=== PATIENT | female | born 1975 | race American Indian/Alaskan Native ===

== ENCOUNTER 2021-06-24 10:55 | Day surgery (SDC) | payer BC ==
[2021-06-22 11:36] LABS: Basophils % (Auto) 0.9 % (0.0-1.8); Eosinophils # (Auto) 0.2 K/mm3 (0.0-0.4); Eosinophils % (Auto) 4.2 % (0.0-4.3); Hematocrit 41.9 % (30.3-42.9); Hemoglobin 13.5 gm/dl (10.1-14.3); Lymphocytes # (Auto) 2.2 K/mm3 (1.2-5.4); Mean Corpuscular HGB Conc 32 % (30-34); Mean Corpuscular Volume 86 fl (79-97); Monocytes # (Auto) 0.3 K/mm3 (0.0-0.8); Monocytes % (Auto) 6.1 % (0.0-7.3); Platelet Count 325 K/mm3 (140-440); Red Blood Count 4.86 M/mm3 (3.65-5.03); Red Cell Distribution Width 13.8 % (13.2-15.2)
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
[~2021-06-24 10:55] MED LIST: ACETAMINOPHEN 500 MG TAB PO NR; CELECOXIB 200 MG CAP PO NR; LACTATED RINGERS 1,000 ML IV SCH; MAGNESIUM OXIDE 400 MG TAB PO NR; MIDAZOLAM 2 MG/2 ML INJ IV NR; fentaNYL 100 MCG/2 ML INJ IV NR
[2021-06-24] MEDS ORDERED: ONDANSETRON 4 MG/2 ML INJ IV PRN ×2 (11:22→17:59)
[2021-06-24] MEDS ORDERED: HYDROmorphone 1 MG/1 ML INJ IV PRN (11:22)
--- NOTE | 2021-06-24 11:23 | Anesthesia Day of Surgery ---
Anesthesia Day of Surgery - Day of Surgery Patient Examined: Yes Patient H&P Reviewed: Yes Patient is NPO: Yes
--- NOTE | 2021-06-24 11:57 | Short Stay Summary ---
Short Stay Documentation Date of service: 06/24/21 Narrative H&P: 45y/o with a symptomatic fibroid uterus. The patient had a pelvic ultrasound that demonstrated a markedly enlarged uterus of 15cm with the largest leiomyoma being 4cm. She reports painful heavy menses. She has failed medical management and elects for definitive surgical management. - History Principal diagnosis: Uterine fibroids Past Medical History: No medical history Past Surgical History: No surgical history Social history: single - Allergies and Medications Current Medications: Allergies No Known Allergies Allergy (Unverified 06/19/21 10:48) Home Medications Medication Instructions Recorded Confirmed Last Taken Type Iron 1 tab PO DAILY 06/19/21 06/24/21 06/23/21 09:00 History Vitamin D (Nf) 1 tab PO DAILY 06/19/21 06/24/21 06/23/21 09:00 History Active Medications Acetaminophen (Acetaminophen 500 Mg Tab) 1,000 mg PO ONCE NR Stop: 06/24/21 20:00 Celecoxib (Celecoxib 200 Mg Cap) 400 mg PO PREOP NR Stop: 06/24/21 20:00 Fentanyl (Fentanyl 100 Mcg/2 Ml Inj) 100 mcg IV ONCE NR Stop: 06/24/21 20:00 Hydromorphone HCl (Hydromorphone 1 Mg/1 Ml Inj) 0.25 mg IV Q10MIN PRN PRN Reason: Pain, Moderate (4-6) Stop: 06/24/21 20:00 Hydromorphone HCl (Hydromorphone 1 Mg/1 Ml Inj) 0.5 mg IV Q10MIN PRN PRN Reason: Pain , Severe (7-10) Stop: 06/24/21 20:00 Lactated Ringer's (Lactated Ringers) 1,000 mls @ 125 mls/hr IV DIRECT ERNESTO Stop: 06/24/21 20:00 Magnesium Oxide (Magnesium Oxide 400 Mg Tab) 400 mg PO ONCE NR Stop: 06/24/21 20:00 Methocarbamol (Methocarbamol 750 Mg Tab) 1,500 mg PO ONCE NR Stop: 06/24/21 20:00 Last Admin: 06/24/21 11:30 Dose: 1,500 mg Midazolam HCl (Midazolam 2 Mg/2 Ml Inj) 2 mg IV PREOP NR Stop: 06/24/21 23:59 Ondansetron HCl (Ondansetron 4 Mg/2 Ml Inj) 4 mg IV ONCE PRN PRN Reason: Nausea And Vomiting Stop: 06/24/21 13:00 - Physical exam General appearance: no acute distress Integumentary: no rash HEENT: Atraumatic Lungs: Clear to auscultation Breasts: deferred Heart: Regular rate Gastrointestinal: normal Female Genitourinary: deferred Rectal Exam: deferred Extremities: no ischemia Neurological: Normal gait - Brief post op/procedure progress note Date of procedure: 06/24/21 Pre-op diagnosis: Symptomatic uterine fibroids Post-op diagnosis: same Procedure: Robotic hysterectomy and bilateral salpingectomy Anesthesia: GETA Surgeon: GT CALI Estimated blood loss: other (100 mL) Pathology: list (Uterus, cervix, bilateral tubes, leiomyomas) Specimen disposition: to lab Condition: stable - Hospital course Hospital course: The patient was admitted the day of surgery underwent a robotic hysterectomy and bilateral salpingectomy. Please see operative note for details of surgery. Her postoperative course was uneventful. - Disposition Condition at discharge: Good Disposition: 01 HOME / SELF CARE / HOMELESS Short Stay Discharge Plan Activity: other (Pelvic rest for 6 weeks) Diet: regular Additional Instructions: Schedule follow-up with Dr. Cali in [address] in 2 weeks No tub baths for 4 weeks
[2021-06-24] MEDS ORDERED: ceFAZolin/Water 2 GM/20 ML 2 GM/20 ML SYRINGE IV NR (12:00)
[2021-06-24] MEDS ORDERED: BUPIVACAINE/PF (0.25%) 2.5 MG/ML 30 ML VIAL INFILTRATI ONE (12:30)
[2021-06-24] MEDS ORDERED: dexAMETHasone 20 MG/5 ML VIAL ONE (12:31)
[2021-06-24] MEDS ORDERED: MIDAZOLAM 2 MG/2 ML INJ IV NR (13:00)
[2021-06-24] MEDS ORDERED: NEOMY 40 MG/POLYMYXIN B 200,000 UNITS/ML (GU) AMPULE IR ONE ×2 (13:06→13:50)
[2021-06-24] MEDS ORDERED: propofoL 200 MG/20 ML VIAL IV ONE (13:18)
[2021-06-24] MEDS ORDERED: ROCURONIUM 50 MG/5 ML INJ IV ONE ×2 (13:18→14:33)
[2021-06-24] MEDS ORDERED: fentaNYL 100 MCG/2 ML INJ ONE (13:18)
[2021-06-24] MEDS ORDERED: LIDOCAINE MPF (2%) 20 MG/1 ML VIAL 5 ML ONE (13:18)
[2021-06-24] MEDS ORDERED: SODIUM CHLORIDE 0.9% IRRIG SOLN 2000 ML IR ONE (13:50)
[2021-06-24] MEDS ORDERED: SODIUM CHLORIDE 0.9% IRR 1,500 ML BOTTLE IR ONE (13:50)
--- NOTE | 2021-06-24 15:35 | Operative Report ---
Operative Report Operative Report: Date of surgery: June 24, 2021 Preoperative diagnoses: Symptomatic uterine fibroids; menorrhagia Postoperative diagnoses: Same as above Procedure: Robotic hysterectomy; bilateral salpingectomy Surgeon: Lorna Wood M.D. Data Engineer: Janette Sanchez Anesthesia: Gen. endotracheal anesthesia Estimated blood loss: 100 mL Pathology: Uterus, cervix, bilateral tubes, leiomyomas Indication: 45-year-old -0-0-1 with a history of symptomatic uterine fibroids. Procedure: The patient was taken to the operating room and given general endotracheal anesthesia without complication after a time out was performed confirming the surgery and identity of the patient. She was prepped and draped in a normal sterile fashion. A bivalve speculum was placed in the patient's vagina and a single-tooth tenaculum placed on the anterior lip of the cervix. The uterus was sounded with the uterine sound. A stay suture with 0-vicryl was placed at 12 o'clock on the anterior cervix. A [employer] uterine manipulator was placed in the bivalve speculum was then removed. A warm laparotomy sponge was placed in the vagina. Attention was then turned to the patient's abdomen where a 12millimeter supra umbilical skin incision was then made. A Veress needle was placed and peritoneal entry was verified water-filled syringe. Insufflation of the peritoneal cavity was performed with CO2 gas. The 12 mm trocar was then placed under direct visualization. An additional 8 mm robotic trocar was placed on the patient's left and right lateral side just opposite of the supraumbilical trocar. An additional 5 mm right lateral trocar was then placed as the accessory port. The supraumbilical 12 mm trocar site was closed with the Jorge Fang device and 0-vicryl suture. The patient was then placed in steep Trendelenburg. The da [employer] robot was then engaged. A fenestrated forcep was placed in arm 2 and a vessel sealer was placed in arm 1. General survey of the abdomen and pelvis revealed a markedly enlarged uterus with multiple leiomyomas. The tubes and ovaries were normal in appearance. The patient had evidence of an anterior and posterior lower uterine segment leiomyoma. The surgeon then transferred to the surgical console. The mesosalpinx was then isolated on the right. The vessel sealer was used to coagulate the mesosalpinx which was then transected. The tube was transected from the ovary. The tubo-ovarian ligament was then coagulated and transected. The round ligament was then coagulated and transected also. The vesicouterine peritoneum was then entered from the patient's right side. The uterine vessels were then coagulated with the vessel sealer. The vessels were then transected . Attention was then turned to the patient's left side where the tubo-ovarian ligament and mesosalpinx were again isolated coagulated and transected. The vesical peritoneum was then entered from the left and joined in the midline. Peritoneum was reflected off of the lower uterine segment. Uterine vessels were then coagulated and then transected. The blood supply to the uterus was adequately contained, a posterior colpotomy was made. The V care ring was visualized. Posterior colpotomy was created with the monopolar scissors. The incision was continued circumferentially until anterior colpotomy was made. The cervix and uterus were amputated from the vaginal cuff. The leiomyomas had to be removed and the uterus had to be bivalved in order to facilitate delivery of the enlarged uterus through the vagina. The uterus was then removed along with the tubes bilaterally through the vagina and a warm laparotomy sponge was placed and maintain the pneumoperitoneum. The vaginal cuff was then closed in a running fashion with V lock suture. Irrigation of the pelvis was performed. Surgicel powder was applied to the incision. The [employer] robot was undocked. The trocars were removed and the insuffliation was released. The skin was then reapproximated with 4-0 Monocryl. The tissue was sent to pathology which included the cervix, leiomyomas, bilateral tubes and uterus. The patient was then successfully extubated. She was then taken to the recovery room in stable condition. All sponge laps and needle counts were correct x2.
[2021-06-24] MEDS ORDERED: GLYCOPYRROLATE 0.4 MG/2 ML INJ ONE (15:37)
[2021-06-24] MEDS ORDERED: KETOROLAC 30 MG/1 ML INJ ONE (15:37)
[2021-06-24] MEDS ORDERED: NEOSTIGMINE 10MG/10 ML INJ MDV ONE (15:37)
[2021-06-24] MEDS ORDERED: ONDANSETRON 4 MG/2 ML INJ ONE ×2 (15:37→17:54)
[2021-06-24] MEDS: HYDROmorphone 1 MG/1 ML INJ IV PRN ×2 (16:09→16:19)
[2021-06-24] MEDS ORDERED: oxyCODONE /ACETAMINOPHEN 5-325MG TAB PO PRN (17:00)
--- NOTE | 2021-06-24 17:14 | Post Anesthesia Evaluation ---
- Post Anesthesia Evaluation Patient Participated: Yes Airway Patent: Yes Stable Respiratory Function: Yes Nausea/Vomiting: No Temp > 96.8F: Yes Pain Manageable: Yes Adequeate Hydration: Yes Anesthesia Complications: No Block Receding Appropriately: Yes Patient on Ventilator: No
[2021-06-24 18:18] VITALS: BP 128/79
== END 2021-06-24 18:55 | disposition home or self-care (01) ==
LOC: OR 10:55
PROVIDERS: ATTEND Obstetrics & Gynecology
DX: N92.0 Excessive and frequent menstruation with regular cycle (principal); D25.0 Submucous leiomyoma of uterus; N84.0 Polyp of corpus uteri; F41.9 Anxiety disorder, unspecified; Z79.899 Other long term (current) drug therapy; Z87.440 Personal history of urinary (tract) infections; Z98.890 Other specified postprocedural states
CPT/HCPCS: 36415; 58554; 64488; 84703; 85025; 86850; 86900; 86901; 88307; J0690; J1100; J1170; J1815; J1885; J2250; J2405; J2704; J2710; J3010; J3490; J7120; S2900; 64450